=== PATIENT | female | born 1995 | race Caucasian/White ===

== ENCOUNTER 2018-02-14 20:43 | Emergency (ER) | payer OTHER, MEDICAID, SELFPAY ==
--- NOTE | 2018-02-14 20:48 | ED.SKABFB ---
HPI - Skin/Abscess/Foreign Bdy <JANIE Shepard - Last Filed: 02/14/18 22:14> General Chief complaint: Skin/Abscess/Foreign Body Stated complaint: cyst on privates x3 days Time Seen by Provider: 02/14/18 20:48 Source: patient Mode of arrival: ambulatory Limitations: no limitations History of Present Illness HPI narrative: 22-year-old healthy female that is a everyday smoker here for complaint of abscess to her left perineal area over the past 3 days. She was seen for this [facility] and was placed on Septra. I and D was not completed. She states she has had some drainage from the area. She denies having any fevers. she did report having chills yesterday. She has been taking the antibiotics as prescribed. She reports increased pain and swelling to the area over the past couple of days. She denies any other concerns or complaints at this time. No trauma to the area. MD complaint: abscess/boil Related Data Previous Rx's Medication Instructions Recorded clindamycin HCl 300 mg PO QID #28 cap 02/14/18 Allergies Allergy/AdvReac Type Severity Reaction Status Date / Time Blood thinners Allergy Uncoded 02/14/18 20:53 Review of Systems <JANIE Shepard - Last Filed: 02/14/18 22:14> Constitutional Reports chills, Denies fever(s), Denies lethargy and Denies weakness Eyes Denies change in vision, Denies eye discharge, Denies irritation and Denies loss of vision ENT Ears, Nose, Mouth, and Throat: Denies change in voice, Denies neck pain and Denies sore throat Cardiovascular Denies chest pain, Denies irregular heart rhythm, Denies lightheadedness, Denies palpitations, Denies dyspnea, Denies dyspnea on exertion and Denies orthopnea Respiratory Denies cough, Denies dyspnea, Denies dyspnea on exertion and Denies wheezing Gastrointestinal Gastrointestinal: Denies abdominal pain, Denies change in bowel habits, Denies diarrhea, Denies nausea and Denies vomiting Genitourinary Comments: Abscess the left perineal arae Musculoskeletal Denies neck pain Integumentary/Breasts Denies pruritus, Denies erythema, Denies rash and Denies wounds Neurologic Denies confusion, Denies loss of vision and Denies weakness Psychiatric Denies anxiety, Denies confusion, Denies depression, Denies homicidal ideation and Denies suicidal ideation Endocrine Denies palpitations Allergic/Immunologic Denies wheezing Exam <JANIE Shepard - Last Filed: 02/14/18 22:14> Initial Vital Signs Initial Vital Signs: Vital Signs Temperature 98.4 F 02/14/18 20:53 Pulse Rate 97 H 02/14/18 20:53 Respiratory Rate 14 02/14/18 20:53 Blood Pressure 135/96 H 02/14/18 20:53 Pulse Oximetry 99 02/14/18 20:53 Const General: cooperative and well developed Nutritional Appearance: well nourished Orientation: alert, awake, oriented x3 and not confused HENMT Mouth: oral mucosae normal and moist mucous membranes Eyes Conjunctivae: conjunctivae normal Sclera: sclerae normal Pupils: PERRL EOM: EOM intact bilaterally Resp Effort & Inspection: normal respiratory effort, able to speak in complete sentences, no respiratory distress and no use of accessory muscles Auscultation: clear to auscultation bilaterally, no rales, no rhonchi and no wheezes Cardio Rate: regular rate Rhythm: regular rhythm Heart Sounds: no click, no gallops, no murmurs and no rubs Pulses: normal peripheral pulses GI Inspection: non-distended Palpation: soft, no hepatosplenomegaly, No guarding, No pulsatile mass and No tender Auscultation: normal bowel sounds Other: 3 cm raised area to the left perineal area between the buttocks and the vulva. Positive induration. Positive fluctuance. No surrounding erythema. Skin General: No jaundice and No petechiae Neuro General: alert, awake, oriented x3, gait normal and no focal motor deficits Speech: speech normal <Ginny Damico DO - Last Filed: 02/15/18 01:58> Initial Vital Signs Initial Vital Signs: Vital Signs Temperature 98.4 F 02/14/18 20:53 Pulse Rate 97 H 02/14/18 20:53 Respiratory Rate 14 02/14/18 20:53 Blood Pressure 135/96 H 02/14/18 20:53 Pulse Oximetry 99 02/14/18 20:53 Procedures <JANIE Shepard - Last Filed: 02/14/18 22:14> Abscess I/D Site: other ( Left perineal area) Side (if applicable): left Local Anesthetic: lidocaine 1% Amount of anesthesia used (mL): 4 Technique: incised with #11 blade Amount of fluid expressed (mL): 5 Irrigation: Yes Packing used?: none Complications: pain Course <JANIE Shepard - Last Filed: 02/14/18 22:14> Orders Ordered: ED Orders 02/14/18 21:20 Wound Culture and Gram Stain Stat Discontinued Medications Hydrocodone Bitart/Acetaminophen (Vicodin Prepack) 1 bottle MISC SEEINSTR ONE Stop: 02/14/18 21:52 Last Admin: 02/14/18 22:02 Dose: 1 bottle Hydrocodone Bitart/Acetaminophen ([place] 5/325) 2 tab PO NOW ONE Stop: 02/14/18 21:52 Last Admin: 02/14/18 22:02 Dose: 2 tab Vital Signs - 8 hr 02/14/18 20:53 02/14/18 22:09 Temperature 98.4 F 98.2 F Pulse Rate 97 H 92 H Respiratory Rate 14 18 Blood Pressure 135/96 H 130/90 Pulse Oximetry 99 98 <Ginny Damico DO - Last Filed: 02/15/18 01:58> Orders Ordered: ED Orders 02/14/18 21:20 Wound Culture and Gram Stain Stat Discontinued Medications Hydrocodone Bitart/Acetaminophen (Vicodin Prepack) 1 bottle MISC SEEINSTR ONE Stop: 02/14/18 21:52 Last Admin: 02/14/18 22:02 Dose: 1 bottle Hydrocodone Bitart/Acetaminophen ([place] 5/325) 2 tab PO NOW ONE Stop: 02/14/18 21:52 Last Admin: 02/14/18 22:02 Dose: 2 tab Vital Signs - 8 hr 02/14/18 20:53 02/14/18 22:09 Temperature 98.4 F 98.2 F Pulse Rate 97 H 92 H Respiratory Rate 14 18 Blood Pressure 135/96 H 130/90 Pulse Oximetry 99 98 MDM - Skin/Abscess/Foreign Bdy <JANIE Shepard - Last Filed: 02/14/18 22:14> MDM Narrative Medical decision making narrative: abscess to the left perineal area was incised and drained with 11. Blade. No complications. Procedure was painful for the patient. Otherwise tolerated well. Culture was obtained and is pending. she is switched over to clindamycin. she is referred to claim trainee for further evaluation. Patient call the office tomorrow morning to schedule follow-up appointment. For any worsening symptoms return to the emergency room. Discharge Plan Departure Patient Disposition: Home Clinical Impression: Abscess of perineum Discharge Date/Time: 02/14/18 22:09 Interventions: ED Discharge Assessment Last Done: 02/14/18 22:09 Instructions: DI for Skin Abscess Activity Restrictions/Additional Instructions: abscess to the perineal area was incised and drained this evening. Antibiotic is changed over to a clindamycin use as directed. Use Tylenol or Motrin as needed for any discomfort. Small amount of [place] is prescribed for any breakthrough pain use as directed. Call claim trainee number provided to schedule follow-up appointment here in the next day or 2 for re-evaluation. For any worsening symptoms return to the emergency room. Prescriptions: New clindamycin HCl 300 mg capsule 300 mg PO QID Qty: 28 RF: 0 Referrals: Della Bustillo MD [Physician] - <Ginny Damico DO - Last Filed: 02/15/18 01:58> Cosign ED Attending Annetteature Attestation: I was immediately available in the department for consultation. Documentation has been reviewed. I agree with assessment and plan.
[2018-02-14 20:53] VITALS: BP 135/96; PULSE 97; RESP 14; TEMP 36.9; O2SAT 99; BMI 25.7
--- NOTE | 2018-02-14 21:51 | ED_ITS ---
HPI - Skin/Abscess/Foreign Bdy <JANIE Shepard - Last Filed: 02/14/18 22:14> General Chief complaint: Skin/Abscess/Foreign Body Stated complaint: cyst on privates x3 days Time Seen by Provider: 02/14/18 20:48 Source: patient Mode of arrival: ambulatory Limitations: no limitations History of Present Illness HPI narrative: 22-year-old healthy female that is a everyday smoker here for complaint of abscess to her left perineal area over the past 3 days. She was seen for this [facility] and was placed on Septra. I and D was not completed. She states she has had some drainage from the area. She denies having any fevers. she did report having chills yesterday. She has been taking the antibiotics as prescribed. She reports increased pain and swelling to the area over the past couple of days. She denies any other concerns or complaints at this time. No trauma to the area. MD complaint: abscess/boil Related Data Previous Rx's Medication Instructions Recorded clindamycin HCl 300 mg PO QID #28 cap 02/14/18 Allergies Allergy/AdvReac Type Severity Reaction Status Date / Time Blood thinners Allergy Uncoded 02/14/18 20:53 Review of Systems <JANIE Shepard - Last Filed: 02/14/18 22:14> Constitutional Reports chills, Denies fever(s), Denies lethargy and Denies weakness Eyes Denies change in vision, Denies eye discharge, Denies irritation and Denies loss of vision ENT Ears, Nose, Mouth, and Throat: Denies change in voice, Denies neck pain and Denies sore throat Cardiovascular Denies chest pain, Denies irregular heart rhythm, Denies lightheadedness, Denies palpitations, Denies dyspnea, Denies dyspnea on exertion and Denies orthopnea Respiratory Denies cough, Denies dyspnea, Denies dyspnea on exertion and Denies wheezing Gastrointestinal Gastrointestinal: Denies abdominal pain, Denies change in bowel habits, Denies diarrhea, Denies nausea and Denies vomiting Genitourinary Comments: Abscess the left perineal arae Musculoskeletal Denies neck pain Integumentary/Breasts Denies pruritus, Denies erythema, Denies rash and Denies wounds Neurologic Denies confusion, Denies loss of vision and Denies weakness Psychiatric Denies anxiety, Denies confusion, Denies depression, Denies homicidal ideation and Denies suicidal ideation Endocrine Denies palpitations Allergic/Immunologic Denies wheezing Exam <JANIE Shepard - Last Filed: 02/14/18 22:14> Initial Vital Signs Initial Vital Signs: Vital Signs Temperature 98.4 F 02/14/18 20:53 Pulse Rate 97 H 02/14/18 20:53 Respiratory Rate 14 02/14/18 20:53 Blood Pressure 135/96 H 02/14/18 20:53 Pulse Oximetry 99 02/14/18 20:53 Const General: cooperative and well developed Nutritional Appearance: well nourished Orientation: alert, awake, oriented x3 and not confused HENMT Mouth: oral mucosae normal and moist mucous membranes Eyes Conjunctivae: conjunctivae normal Sclera: sclerae normal Pupils: PERRL EOM: EOM intact bilaterally Resp Effort & Inspection: normal respiratory effort, able to speak in complete sentences, no respiratory distress and no use of accessory muscles Auscultation: clear to auscultation bilaterally, no rales, no rhonchi and no wheezes Cardio Rate: regular rate Rhythm: regular rhythm Heart Sounds: no click, no gallops, no murmurs and no rubs Pulses: normal peripheral pulses GI Inspection: non-distended Palpation: soft, no hepatosplenomegaly, No guarding, No pulsatile mass and No tender Auscultation: normal bowel sounds Other: 3 cm raised area to the left perineal area between the buttocks and the vulva. Positive induration. Positive fluctuance. No surrounding erythema. Skin General: No jaundice and No petechiae Neuro General: alert, awake, oriented x3, gait normal and no focal motor deficits Speech: speech normal <Ginny Damico DO - Last Filed: 02/15/18 01:58> Initial Vital Signs Initial Vital Signs: Vital Signs Temperature 98.4 F 02/14/18 20:53 Pulse Rate 97 H 02/14/18 20:53 Respiratory Rate 14 02/14/18 20:53 Blood Pressure 135/96 H 02/14/18 20:53 Pulse Oximetry 99 02/14/18 20:53 Procedures <JAINE Shepard - Last Filed: 02/14/18 22:14> Abscess I/D Site: other ( Left perineal area) Side (if applicable): left Local Anesthetic: lidocaine 1% Amount of anesthesia used (mL): 4 Technique: incised with #11 blade Amount of fluid expressed (mL): 5 Irrigation: Yes Packing used?: none Complications: pain Course <JANIE Shepard - Last Filed: 02/14/18 22:14> Orders Ordered: ED Orders 02/14/18 21:20 Wound Culture and Gram Stain Stat Discontinued Medications Hydrocodone Bitart/Acetaminophen (Vicodin Prepack) 1 bottle MISC SEEINSTR ONE Stop: 02/14/18 21:52 Last Admin: 02/14/18 22:02 Dose: 1 bottle Hydrocodone Bitart/Acetaminophen ([place] 5/325) 2 tab PO NOW ONE Stop: 02/14/18 21:52 Last Admin: 02/14/18 22:02 Dose: 2 tab Vital Signs - 8 hr 02/14/18 20:53 02/14/18 22:09 Temperature 98.4 F 98.2 F Pulse Rate 97 H 92 H Respiratory Rate 14 18 Blood Pressure 135/96 H 130/90 Pulse Oximetry 99 98 <Ginny Damico DO - Last Filed: 02/15/18 01:58> Orders Ordered: ED Orders 02/14/18 21:20 Wound Culture and Gram Stain Stat Discontinued Medications Hydrocodone Bitart/Acetaminophen (Vicodin Prepack) 1 bottle MISC SEEINSTR ONE Stop: 02/14/18 21:52 Last Admin: 02/14/18 22:02 Dose: 1 bottle Hydrocodone Bitart/Acetaminophen ([place] 5/325) 2 tab PO NOW ONE Stop: 02/14/18 21:52 Last Admin: 02/14/18 22:02 Dose: 2 tab Vital Signs - 8 hr 02/14/18 20:53 02/14/18 22:09 Temperature 98.4 F 98.2 F Pulse Rate 97 H 92 H Respiratory Rate 14 18 Blood Pressure 135/96 H 130/90 Pulse Oximetry 99 98 MDM - Skin/Abscess/Foreign Bdy <JANIE Shepard - Last Filed: 02/14/18 22:14> MDM Narrative Medical decision making narrative: abscess to the left perineal area was incised and drained with 11. Blade. No complications. Procedure was painful for the patient. Otherwise tolerated well. Culture was obtained and is pending. she is switched over to clindamycin. she is referred to chiropractic practice manager for further evaluation. Patient call the office tomorrow morning to schedule follow -up appointment. For any worsening symptoms return to the emergency room. Discharge Plan Departure Patient Disposition: Home Clinical Impression: Abscess of perineum Discharge Date/Time: 02/14/18 22:09 Interventions: ED Discharge Assessment Last Done: 02/14/18 22:09 Instructions: DI for Skin Abscess Activity Restrictions/Additional Instructions: abscess to the perineal area was incised and drained this evening. Antibiotic is changed over to a clindamycin use as directed. Use Tylenol or Motrin as needed for any discomfort. Small amount of [place] is prescribed for any breakthrough pain use as directed. Call chiropractic practice manager number provided to schedule follow- up appointment here in the next day or 2 for re-evaluation. For any worsening symptoms return to the emergency room. Prescriptions: New clindamycin HCl 300 mg capsule 300 mg PO QID Qty: 28 RF: 0 Referrals: Della Bustillo MD [Physician] - <Ginny Damico DO - Last Filed: 02/15/18 01:58> Cosign ED Attending Annetteature Attestation: I was immediately available in the department for consultation. Documentation has been reviewed. I agree with assessment and plan.
[2018-02-14] MEDS: HYDROCODONE/ACET 5/325 PREPACK 1 BOTTLE MISC (22:02)
[2018-02-14] MEDS: HYDROCODONE/ACET 5/325 TABLET 2 TAB PO (22:02)
[2018-02-14 22:09] VITALS: BP 130/90; PULSE 92; RESP 18; TEMP 36.8; O2SAT 98
== END 2018-02-14 22:09 | disposition home or self-care (01) ==
PROVIDERS: Emergency Provider Nurse Practitioner Family
DX: K61.0 Anal abscess (principal)
CPT/HCPCS: 10060; 87070; 87075; 87077; 87147; 87205; 99282; 99283